=== PATIENT | female | born 1975 | race Caucasian/White ===

== ENCOUNTER 2017-06-07 08:15 | Emergency (ER) | payer OTHER ==
[~2017-06-07] VITALS: Ht 157.5 cm; Wt 75.0 kg
[~2017-06-07 08:15] MED LIST: FLAG500T PO; LEVA500T PO; PERC5TAB12 PO
[2017-06-07 08:25] VITALS: BP 126/70; PULSE 126; RESP 17; TEMP 98.3; O2SAT 98
[2017-06-07] MEDS ORDERED: SODIUM CHLOR 0.9% 1000 ML INJ 1,000 ML IV ONE ×2 (08:32→09:45)
--- NOTE | 2017-06-07 08:35 | PD ---
HPI Chief Complaint: Suicide Ideation/Attempt Time Seen by Provider: 08:25 Travel History International Travel<30 days: No Contact w/Intl Traveler<30days: No Traveled to known affect area: No History of Present Illness HPI 42yo F with PMH of anxiety, depression was brought in as John Act because of suicidal attempt. Pt states she does not want to live anymore and the world is a better place without her. She took 15 pills of xanax and 8 pills of ibuprofen yesterday at 3pm. Pt's called [facility] today. Denies any fever, cough, chest pain, sob, n/v, abdominal pain, focal weakness or numbness. Denies any alcohol use. PFSH Past Medical History Arthritis: No Asthma: No Autoimmune Disease: No Heart Rhythm Problems: Yes Cancer: No Cardiovascular Problems: No High Cholesterol: No Chemotherapy: No Chest Pain: No Congestive Heart Failure: No COPD: No Cerebrovascular Accident: No Diabetes: No Endocrine: No GERD: No Genitourinary: No Hepatitis: No Hiatal Hernia: Yes Hypertension: Yes Immune Disorder: No Kidney Stones: No Musculoskeletal: No Neurologic: No Psychiatric: No Reproductive: No Respiratory: No Migraines: No Radiation Therapy: No Renal Failure: No Seizures: No Sickle Cell Disease: No Sleep Apnea: No Thyroid Disease: No Ulcer: No ?: Not LMP: 06/03/17 : 1 Para: 1 Past Surgical History Abdominal Surgery: Yes AICD: No Arteriovenous Shunt: No Cardiac Surgery: No Section: Yes Ear Surgery: No Endocrine Surgery: No Eye Surgery: No Genitourinary Surgery: No Gynecologic Surgery: Yes Insulin Pump: No Joint Replacement: No Oral Surgery: No Pacemaker: No Thoracic Surgery: No Social History Alcohol Use: No Tobacco Use: Yes (2 PPD) Substance Use: Yes (THC) Allergies-Medications (Allergen,Severity, Reaction): Coded Allergies: aspirin (Unverified Allergy, Severe, 04/12/17) ASTHMA LIKE SYMPTOMS penicillin G (Unverified Allergy, Severe, 04/12/17) HIVES Reported Meds & Prescriptions Reported Meds & Active Scripts Active Macrobid (Nitrofurantoin Monoh/Nitrofur Macro) 100 Mg Cap 100 Mg PO BID 5 Days Reported Flagyl (Metronidazole) 500 Mg Tab 500 Mg PO QID 7 Days Levaquin 500 Mg Tab (Levofloxacin) 500 Mg Tab 500 Mg PO DAILY 7 Days Percocet 5-325 mg (Oxycodone/Acetaminophen) 5 Mg/325 Mg Tab 1 Tab PO Q4H PRN Review of Systems Except as stated in HPI: all other systems reviewed are Neg Physical Exam Narrative GENERAL: 42yo F in mild distress. SKIN: Focused skin assessment warm/dry. HEAD: Atraumatic. Normocephalic. EYES: Pupils equal and round at 3mm bilaterally. EOMI. No scleral icterus. No injection or drainage. ENT: No nasal bleeding or discharge. Mucous membranes pink and moist. NECK: Trachea midline. No JVD. CARDIOVASCULAR: Regular rate and rhythm. No murmur appreciated. RESPIRATORY: No accessory muscle use. Clear to auscultation. Breath sounds equal bilaterally. GASTROINTESTINAL: Abdomen soft, non-tender, nondistended. No rebound tenderness or guarding. MUSCULOSKELETAL: No obvious deformities. No clubbing. No cyanosis. No edema. NEUROLOGICAL: Awake and alert. No obvious cranial nerve deficits. Motor grossly within normal limits. Normal speech. PSYCHIATRIC: Inappropriate mood and affect; poor insight and judgment. Data Data Last Documented VS Vital Signs Date Time Temp Pulse Resp B/P (MAP) Pulse Ox O2 Delivery O2 Flow Rate FiO2 06/07/17 12:57 75 16 131/72 (91) 97 Room Air 06/07/17 08:25 98.3 Orders Orders Electrocardiogram (06/07/17 08:32) Complete Blood Count With Diff (06/07/17 08:32) Comprehensive Metabolic Panel (06/07/17 08:32) Prothrombin Time / Inr (Pt) (06/07/17 08:32) Act Partial Throm Time (Ptt) (06/07/17 08:32) Urinalysis - C+S If Indicated (06/07/17 08:32) Iv Access Insert/Monitor (06/07/17 08:32) Ecg Monitoring (06/07/17 08:32) Oximetry (06/07/17 08:32) Psych Screen (06/07/17 08:32) Sodium Chloride 0.9% Flush (Ns Flush) (06/07/17 08:45) Sodium Chlor 0.9% 1000 Ml Inj (Ns 1000 M (06/07/17 08:32) Call Poison Control (06/07/17 08:32) Drug Screen, Random Urine (06/07/17 08:32) Alcohol (Ethanol) (06/07/17 08:32) Salicylates (Aspirin) (06/07/17 08:32) Tylenol (Acetaminophen) (06/07/17 08:32) Ed Urine Pregnancytest Poc (06/07/17 08:32) Sodium Chlor 0.9% 1000 Ml Inj (Ns 1000 M (06/07/17 09:45) Potassium Chloride (Kcl) (06/07/17 09:45) Urine Culture (06/07/17 08:50) Nitrofurantoin Monohyd Macrocr (Macrobid (06/07/17 10:15) Ed Discharge Order (06/07/17 14:46) Labs Laboratory Tests Test 06/07/17 08:50 White Blood Count 11.4 TH/MM3 Red Blood Count 5.33 MIL/MM3 Hemoglobin 16.9 GM/DL Hematocrit 49.3 % Mean Corpuscular Volume 92.6 FL Mean Corpuscular Hemoglobin 31.7 PG Mean Corpuscular Hemoglobin Concent 34.2 % Red Cell Distribution Width 14.2 % Platelet Count 272 TH/MM3 Mean Platelet Volume 7.5 FL Neutrophils (%) (Auto) 63.4 % Lymphocytes (%) (Auto) 27.1 % Monocytes (%) (Auto) 7.7 % Eosinophils (%) (Auto) 1.6 % Basophils (%) (Auto) 0.2 % Neutrophils # (Auto) 7.2 TH/MM3 Lymphocytes # (Auto) 3.1 TH/MM3 Monocytes # (Auto) 0.9 TH/MM3 Eosinophils # (Auto) 0.2 TH/MM3 Basophils # (Auto) 0.0 TH/MM3 CBC Comment DIFF FINAL Differential Comment Prothrombin Time 11.1 SEC Prothromb Time International Ratio 1.0 RATIO Activated Partial Thromboplast Time 26.7 SEC Urine Color LIGHT-RED Urine Turbidity HAZY Urine pH 5.5 Urine Specific [place] 1.011 Urine Protein 30 mg/dL Urine Glucose (UA) NEG mg/dL Urine Ketones NEG mg/dL Urine Occult Blood LARGE Urine Nitrite NEG Urine Bilirubin NEG Urine Urobilinogen LESS THAN 2.0 MG/DL Urine Leukocyte Esterase TRACE Urine RBC /hpf Urine WBC 147 /hpf Urine Squamous Epithelial Cells 3 /hpf Urine Bacteria MANY /hpf Microscopic Urinalysis Comment CULTURE INDICATED Blood Urea Nitrogen 12 MG/DL Creatinine 1.23 MG/DL Random Glucose 106 MG/DL Total Protein 8.5 GM/DL Albumin 4.5 GM/DL Calcium Level 9.7 MG/DL Alkaline Phosphatase 91 U/L Aspartate Amino Transf (AST/SGOT) 26 U/L Alanine Aminotransferase (ALT/SGPT) 39 U/L Total Bilirubin 0.7 MG/DL Sodium Level 135 MEQ/L Potassium Level 3.1 MEQ/L Chloride Level 101 MEQ/L Carbon Dioxide Level 25.8 MEQ/L Anion Gap 8 MEQ/L Estimat Glomerular Filtration Rate 47 ML/MIN Salicylates Level 6.0 MG/DL Urine Opiates Screen NEG Acetaminophen Level LESS THAN 2.0 MCG/ML Urine Barbiturates Screen NEG Urine Amphetamines Screen NEG Urine Benzodiazepines Screen POS Urine Cocaine Screen NEG Urine Cannabinoids Screen POS Ethyl Alcohol Level LESS THAN 3 MG/DL MDM Medical Decision Making Medical Screen Exam Complete: Yes Emergency Medical Condition: Yes Interpretation(s) EKG: Sinus tachycardia at 112bpm. Normal axis. Narrow QRS. QTc 397ms. Differential Diagnosis Depression vs. suicidal attempt vs. tylenol overdose vs. salicylate overdose vs. ABELARDO Narrative Course 42yo F with depression here s/p overdose with xanax and ibuprofen yesterday at 3pm as suicidal attempt. Pt is AAOx3 with normal mental status. She was tachycardic in the 130s-140s. Repeat HR was 112bpm. Labs reviewed, WBC 11.4. Mild hypokalemia at 3.1, replaced orally. Creatinine mildly elevated at 1.23. Alcohol, acetaminophen and salicylate normal. U tox positive for benzodiazepine and cannabinoids. UA showed WBC 147. Pt given macrobid. Pt initially tachycardic and given NS IVF. HR is now 95bpm. Poison control called and recommended supportive treatment. Pt is medically clear for psych evaluation. Pt was seen by psychiatrist Dr. Billingsley and BA radha. Pt wants to go home. Return precautions given. Diagnosis Primary Impression: Suicidal ideation Additional Impression: UTI (urinary tract infection) Qualified Codes: N39.0 - Urinary tract infection, site not specified; R31.9 - Hematuria, unspecified Patient Instructions: General Instructions Departure Forms: Tests/Procedures Additional Instructions: Please follow up with your primary care physician in 3-7 days. Return to the ED if symptoms worsen. Med/Other Pt SpecificInfo: Prescription(s) given Scripts Nitrofurantoin Monohydrate Macrocrystals (Macrobid) 100 Mg Cap 100 MG PO BID for Infection for 5 Days, #10 CAP 0 Refills Prov: Debora Jeffries DO 06/07/17 Disposition: 01 DISCHARGE HOME Condition: Stable Debora Jeffries DO Jun 07, 2017 08:35
[2017-06-07] MEDS ORDERED: SODIUM CHLORIDE 0.9% FLUSH 10 ML FLUSH IVF PRN (08:45)
[2017-06-07 09:13] VITALS: PULSE 109
[2017-06-07 09:17] LABS: AUTOMATED NEUTROPHIL # 7.2 TH/MM3 (1.8-7.7); BASOPHIL % 0.2 % (0.0-2.0); EOSINOPHIL # 0.2 TH/MM3 (0-0.4); EOSINOPHIL % 1.6 % (0.0-4.0); HEMATOCRIT 49.3 % (35.0-46.0); HEMO FLAGS DIFF FINAL; LYMPH % 27.1 % (9.0-44.0); LYMPHOCYTE # 3.1 TH/MM3 (1.0-4.8); MEAN CELL VOLUME 92.6 FL (80.0-100.0); MEAN CORPUSCULAR HEMOGLOBIN 31.7 PG (27.0-34.0); MEAN CORPUSCULAR HGB CONC 34.2 % (32.0-36.0); MONO % 7.7 % (0.0-8.0); NEUT % 63.4 % (16.0-70.0); PLATELET COUNT 272 TH/MM3 (150-450); RED BLOOD COUNT 5.33 MIL/MM3 (4.00-5.30); RED CELL DISTRIBUTION WIDTH 14.2 % (11.6-17.2); WHITE BLOOD COUNT 11.4 TH/MM3 (4.0-11.0)
[2017-06-07 09:19] LABS: APTT (PATIENT) 26.7 SEC (24.3-30.1); PROTHROMBIN TIME - PATIENT 11.1 SEC (9.8-11.6)
[2017-06-07 09:28] LABS: ANION GAP 8 MEQ/L (5-15); AST (GOT) 26 U/L (15-37); BICARBONATE 25.8 MEQ/L (21.0-32.0); BLOOD UREA NITROGEN 12 MG/DL (7-18); CHLORIDE 101 MEQ/L (98-107); GLOMERULAR FILTRATION RATE 47 ML/MIN (>89); POTASSIUM 3.1 MEQ/L (3.5-5.1); SODIUM (NA) 135 MEQ/L (136-145)
[2017-06-07 09:31] LABS: ALKALINE PHOSPHATASE 91 U/L (45-117); ALT (GPT) 39 U/L (10-53); TOTAL BILIRUBIN ADULT 0.7 MG/DL (0.2-1.0)
[2017-06-07 09:33] LABS: ACETAMINOPHEN LESS THAN 2.0 MCG/ML (10.0-30.0); ALCOHOL LESS THAN 3 MG/DL (0-5)
[2017-06-07 09:37] VITALS: PULSE 103
[2017-06-07 09:43] LABS: BACTERIA, URINE MANY /hpf; BLOOD, URINE LARGE (NEG); COMMENT (UR) CULTURE INDICATED; CULTURE IF INDICATED CULTURE INDICATED; GLUCOSE,URINE NEG (NEG); KETONE, URINE NEG (NEG); NITRITE,URINE NEG (NEG); PH, URINE 5.5 (5.0-8.5); SQUAMOUS EPITHELIAL CELL URINE 3 /hpf (0-5)
[2017-06-07 09:45] LABS: URINE COLOR LIGHT-RED (YELLW/STRAW)
[2017-06-07] MEDS ORDERED: POTASSIUM CHLORIDE 20 MEQ CONTROLLED RELEASE TAB PO ONE (09:45)
[2017-06-07 10:03] VITALS: PULSE 95; PULSE 99
[2017-06-07] MEDS ORDERED: NITROFURANTOIN MONOHYD MACROCR 100 MG CAP PO ONE (10:15)
[2017-06-07] MEDS ORDERED: MACR100C2 PO (10:20)
--- NOTE | 2017-06-07 12:33 | PD ---
History of Present Illness Chief Complaint: Suicide Ideation/Attempt Time Seen by Provider: 12:15 Travel History International Travel<30 Days: No Contact w/Intl Traveler<30days: No Known affected area: No Legal Status Legal Status: John Act History of Present Illness: 42-year-old female brought in under a John act for overdosing on 15 old Xanax pills and 8 ibuprofen pills. Patient herself called even back. She reportedly did not want to live any longer. At the present time, patient denies suicidal or homicidal ideation, plan or intent. She states that she "freaked out" after she received a telephone call yesterday morning from the woman with whom her 's cheating. She accused her of cheating and he said she was a "fat whorer" and that he was no longer attracted to her, etc.. Patient states that his verbally abusive remarks and his alcoholism make him very difficult to live with. She is planning to divorce him and states she was actually going to see a probate lawyer today. 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 She is verbally jairon for safety and she is competent to do so. PFS Past Medical History Arthritis: No Asthma: No Autoimmune Disease: No Heart Rhythm Problems: Yes Cancer: No Cardiovascular Problems: No High Cholesterol: No Chemotherapy: No Chest Pain: No Congestive Heart Failure: No COPD: No Cerebrovascular Accident: No Diabetes: No Endocrine: No GERD: No Genitourinary: No Hepatitis: No Hiatal Hernia: Yes Hypertension: Yes Immune Disorder: No Kidney Stones: No Musculoskeletal: No Neurologic: No Psychiatric: No Reproductive: No Respiratory: No Migraines: No Radiation Therapy: No Renal Failure: No Seizures: No Sickle Cell Disease: No Sleep Apnea: No Thyroid Disease: No Ulcer: No ?: Not LMP: 06/03/17 : 1 Para: 1 Past Surgical History Abdominal Surgery: Yes AICD: No Arteriovenous Shunt: No Cardiac Surgery: No Section: Yes Ear Surgery: No Endocrine Surgery: No Eye Surgery: No Genitourinary Surgery: No Gynecologic Surgery: Yes Insulin Pump: No Joint Replacement: No Oral Surgery: No Pacemaker: No Thoracic Surgery: No Psychiatric History Psychiatric History Hx Psychiatric Treatment: No previous psychiatric treatment. History of Inpatient Treatment: No Guns or firearms in home: No Social History Hx Alcohol Use: No Hx Tobacco Use: Yes (2 PPD) Hx Substance Use: Yes (THC) Hx of Substance Use Treatment: No Allergies-Medications (Allergen,Severity, Reaction): Coded Allergies: aspirin (Unverified Allergy, Severe, 04/12/17) ASTHMA LIKE SYMPTOMS penicillin G (Unverified Allergy, Severe, 04/12/17) HIVES Reported Meds & Prescriptions Reported Meds & Active Scripts Active Macrobid (Nitrofurantoin Monoh/Nitrofur Macro) 100 Mg Cap 100 Mg PO BID 5 Days Reported Flagyl (Metronidazole) 500 Mg Tab 500 Mg PO QID 7 Days Levaquin 500 Mg Tab (Levofloxacin) 500 Mg Tab 500 Mg PO DAILY 7 Days Percocet 5-325 mg (Oxycodone/Acetaminophen) 5 Mg/325 Mg Tab 1 Tab PO Q4H PRN Review of Systems Except as stated in HPI: all other systems reviewed are Neg Mental Status Examination Appearance: Appropriate Consciousness: Alert Orientation: x4 Motor Activity: Normal gait Speech: Unremarkable Language: Adequate Fund of Knowledge: Adequate Attention and Concentration: Adequate Memory: Unremarkable Mood: Appropriate Affect: Appropriate Thought Process & Associations: Intact Thought Content: Appropriate Hallucination Type: None Delusion Type: None Suicidal Ideation: No Suicidal Plan: No Suicidal Intention: No Homicidal Ideation: No Homicidal Plan: No Homicidal Intention: No Insight: Adequate Judgment: Adequate MDM Medical Decision Making Medical Record Reviewed: Yes Assessment/Plan Patient interviewed at bedside, medical record reviewed and case discussed with nurse. Despite patient's recent overdose, she admits to having done this impulsively and irrationally because of her upset with her . She has now calmed down and would very much like to be released so that she can return to work. She denies suicidal or homicidal ideation, plan or intent. She is verbally jairon for safety. She is planning for the future and in this physician's opinion, she can be treated as an outpatient. She was referred to [facility] for follow up treatment. Orders Orders Electrocardiogram (06/07/17 08:32) Complete Blood Count With Diff (06/07/17 08:32) Comprehensive Metabolic Panel (06/07/17 08:32) Prothrombin Time / Inr (Pt) (06/07/17 08:32) Act Partial Throm Time (Ptt) (06/07/17 08:32) Urinalysis - C+S If Indicated (06/07/17 08:32) Iv Access Insert/Monitor (06/07/17 08:32) Ecg Monitoring (06/07/17 08:32) Oximetry (06/07/17 08:32) Psych Screen (06/07/17 08:32) Sodium Chloride 0.9% Flush (Ns Flush) (06/07/17 08:45) Sodium Chlor 0.9% 1000 Ml Inj (Ns 1000 M (06/07/17 08:32) Call Poison Control (06/07/17 08:32) Drug Screen, Random Urine (06/07/17 08:32) Alcohol (Ethanol) (06/07/17 08:32) Salicylates (Aspirin) (06/07/17 08:32) Tylenol (Acetaminophen) (06/07/17 08:32) Ed Urine Pregnancytest Poc (06/07/17 08:32) Sodium Chlor 0.9% 1000 Ml Inj (Ns 1000 M (06/07/17 09:45) Potassium Chloride (Kcl) (06/07/17 09:45) Urine Culture (06/07/17 08:50) Nitrofurantoin Monohyd Macrocr (Macrobid (06/07/17 10:15) Results Vital Signs Date Time Temp Pulse Resp B/P (MAP) Pulse Ox O2 Delivery O2 Flow Rate FiO2 06/07/17 10:03 95 06/07/17 09:37 103 06/07/17 09:13 109 06/07/17 08:25 98.3 126 17 126/70 (88) 98 Room Air Laboratory Tests Test 06/07/17 08:50 White Blood Count 11.4 Red Blood Count 5.33 Hemoglobin 16.9 Hematocrit 49.3 Mean Corpuscular Volume 92.6 Mean Corpuscular Hemoglobin 31.7 Mean Corpuscular Hemoglobin Concent 34.2 Red Cell Distribution Width 14.2 Platelet Count 272 Mean Platelet Volume 7.5 Neutrophils (%) (Auto) 63.4 Lymphocytes (%) (Auto) 27.1 Monocytes (%) (Auto) 7.7 Eosinophils (%) (Auto) 1.6 Basophils (%) (Auto) 0.2 Neutrophils # (Auto) 7.2 Lymphocytes # (Auto) 3.1 Monocytes # (Auto) 0.9 Eosinophils # (Auto) 0.2 Basophils # (Auto) 0.0 CBC Comment DIFF FINAL Differential Comment Prothrombin Time 11.1 Prothromb Time International Ratio 1.0 Activated Partial Thromboplast Time 26.7 Urine Color LIGHT-RED Urine Turbidity HAZY Urine pH 5.5 Urine Specific [place] 1.011 Urine Protein 30 Urine Glucose (UA) NEG Urine Ketones NEG Urine Occult Blood LARGE Urine Nitrite NEG Urine Bilirubin NEG Urine Urobilinogen LESS THAN 2.0 Urine Leukocyte Esterase TRACE Urine RBC Urine WBC 147 Urine Squamous Epithelial Cells 3 Urine Bacteria MANY Microscopic Urinalysis Comment CULTURE INDICATED Blood Urea Nitrogen 12 Creatinine 1.23 Random Glucose 106 Total Protein 8.5 Albumin 4.5 Calcium Level 9.7 Alkaline Phosphatase 91 Aspartate Amino Transf (AST/SGOT) 26 Alanine Aminotransferase (ALT/SGPT) 39 Total Bilirubin 0.7 Sodium Level 135 Potassium Level 3.1 Chloride Level 101 Carbon Dioxide Level 25.8 Anion Gap 8 Estimat Glomerular Filtration Rate 47 Salicylates Level 6.0 Urine Opiates Screen NEG Acetaminophen Level LESS THAN 2.0 Urine Barbiturates Screen NEG Urine Amphetamines Screen NEG Urine Benzodiazepines Screen POS Urine Cocaine Screen NEG Urine Cannabinoids Screen POS Ethyl Alcohol Level LESS THAN 3 Date/Time Source Procedure Growth Status 06/07/17 08:50 Urine Random Urine Urine Culture Pending Received Diagnosis Primary Impression: Adjustment disorder with mixed disturbance of emotions and conduct Prescriptions Nitrofurantoin Monohydrate Macrocrystals (Macrobid) 100 Mg Cap 100 MG PO BID for Infection for 5 Days, #10 CAP 0 Refills Prov: Debora Jeffries 06/07/17 Jerry Billingsley MD Jun 07, 2017 12:32
[2017-06-07 12:57] VITALS: BP 131/72; PULSE 75; RESP 16; O2SAT 97
[2017-06-07 14:49] VITALS: BP 134/75; PULSE 77; RESP 16; O2SAT 98
--- NOTE | 2017-06-09 00:12 | EKG ---
Date Performed: 06/07/2017 Time Performed: 08:59:06 PTAGE: 42 years EKG: SINUS TACHYCARDIA BORDERLINE RIGHT AXIS DEVIATION ABNORMAL RHYTHM ECG PREVIOUS TRACING : 05/10/2003 07.03 Compared to the previous tracing, rate has increased DOCTOR: Jarett Stephenson Interpretating Date/Time 06/09/2017 00:10:31
== END 2017-06-07 14:52 | disposition home or self-care (01) ==
LOC: NEPE 08:15
DX: R45.851 Suicidal ideations (principal); N39.0 Urinary tract infection, site not specified; F43.25 Adjustment disorder with mixed disturbance of emotions and conduct; R00.0 Tachycardia, unspecified; E87.6 Hypokalemia; D72.829 Elevated white blood cell count, unspecified; R94.31 Abnormal electrocardiogram [ECG] [EKG]; I10 Essential (primary) hypertension; F17.200 Nicotine dependence, unspecified, uncomplicated; Z79.899 Other long term (current) drug therapy; Z86.79 Personal history of other diseases of the circulatory system; Z87.39 Personal history of other diseases of the musculoskeletal system and connective tissue
CPT/HCPCS: 80053; 80307; 81001; 84703; 85025; 85610; 85730; 87086; 93005; 96360; 96361; 99284; J7030